=== PATIENT | female | born 1985 | race Caucasian/White ===

== ENCOUNTER 2022-06-22 17:25 | Emergency (ER) | payer BC, SELFPAY ==
[2022-06-22 17:34] VITALS: BP 149/95; PULSE 77; RESP 20; TEMP 37.1; O2SAT 99
[2022-06-22 18:04] VITALS: BP 130/88
--- NOTE | 2022-06-22 18:09 | ED.URI ---
HPI - URI/Sore Throat General Chief Complaint: Upper Respiratory Infection Stated Complaint: strep test Source: patient and RN notes reviewed History of Present Illness HPI Narrative: 36-year-old female presents to urgent care with complaints of sore throat that radiates to her right neck and ear. Patient states this started this morning. Patient denies any congestion, coughing, shortness of breath, vomiting, diarrhea, the summer chills. Patient did take Tylenol earlier for pain. Some parts of this dictation were generated by voice recognition software and may contain typographical and/or grammatical inaccuracies. Related Data Home Medications Medication Instructions Recorded Confirmed citalopram 40 mg tablet 40 mg PO DIRECTED 06/22/22 06/22/22 lorazepam 0.5 mg tablet 0.5 mg PO DIRECTED 06/22/22 06/22/22 Allergies Allergy/AdvReac Type Severity Reaction Status Date / Time sulfamethoxazole Allergy Hives Verified 06/22/22 17:33 [From Bactrim] trimethoprim [From Bactrim] Allergy Hives Verified 06/22/22 17:33 Review of Systems Review of Systems: CONSTITUTIONAL: Denies fever, chills, or sweats. EYES: Denies visual changes, redness, or discharge. ENT: Reports right ear pain and sore throat CARDIOVASCULAR: Denies chest pain, palpitations, or edema. RESPIRATORY: Denies cough or dyspnea. GASTROINTESTINAL: Denies abdominal pain, nausea, vomiting, or diarrhea. GENITOURINARY: Denies dysuria or hematuria. SKIN: Denies rash or itching. MUSCULOSKELETAL: Denies back pain, joint pain, or myalgia. NEUROLOGIC: Denies headache, numbness, or weakness. [facility] Past Medical History Medical History (Updated 06/22/22 @ 18:10 by Rosalia Hauser APRN) Anxiety panic attack No pertinent family history Surgical History Surgical History No significant past surgical history Social History Social History (Updated 04/16/19 @ 09:48 by LOIDA Francisco) Smoking status: Never smoker Comments At the time of my signature, I reviewed and agree with the nursing past medical, surgical, social, and family history. There is no relevant family history pertinent to the patient complaint. Exam Narrative: GENERAL: This is a well-nourished, well-developed patient, in no apparent distress. HEAD: normocephalic, atraumatic. EYES: PERRL. Sclera clear/white. Vision is grossly intact. EARS: External ears normal, auditory canals clear and without drainage, TMs normal without perforation. Hearing grossly intact. NOSE: External nose normal with no obvious nasal discharge, nares without redness, no rhinorrhea. THROAT: Mucous membranes moist, posterior pharynx clear. NECK: Neck supple, non-tender without lymphadenopathy, masses or thyromegaly. CARDIOVASCULAR: Regular rate and rhythm without murmurs, gallops, or rubs. RESPIRATORY: Clear to auscultation. Breath sounds equal bilaterally. No wheezes, rales, or rhonchi. GASTROINTESTINAL: Abdomen soft, non-tender, nondistended. Bowel sounds are active. No hepato-splenomegaly, or palpable masses. No guarding. SKIN: warm, intact with no suspicious lesions or rash, good texture and turgor. NEURO: awake, alert, and oriented to person, place and time. There were no obvious focal neurologic abnormalities. EXTREMITIES: No clubbing, cyanosis, or edema. No joint tenderness, effusion, or edema noted. BACK: Nontender without deformity or crepitance. No flank tenderness. Course Course Level of Care: Express Care Visit Vital Signs Vital signs: Vital Signs Temperature 98.7 F 06/22/22 17:34 Pulse Rate 77 06/22/22 17:34 Respiratory Rate 20 06/22/22 17:34 Blood Pressure 149/95 H 06/22/22 17:34 Pulse Oximetry 99 06/22/22 17:34 Oxygen Delivery Room Air 06/22/22 17:34 Temperature 98.7 F 06/22/22 17:34 Pulse Rate 77 06/22/22 17:34 Respiratory Rate 20 06/22/22 17:34 Blood Pressure 130/88 06/22/22 18:04 Pulse Oximet
== END 2022-06-22 18:13 | disposition home or self-care (01) ==
PROVIDERS: Emergency Provider Nurse Practitioner Family; PCP Nurse Practitioner Family
DX: J02.9 Acute pharyngitis, unspecified (principal); F41.9 Anxiety disorder, unspecified; F41.0 Panic disorder [episodic paroxysmal anxiety]
CPT/HCPCS: 87081; 87880; 99203; G0463

== ENCOUNTER 2023-04-10 11:13 | Emergency (ER) | payer BC, SELFPAY ==
[2023-04-10 11:19] VITALS: BP 143/91; PULSE 77; RESP 16; TEMP 36.8; O2SAT 100
--- NOTE | 2023-04-10 12:11 | ED.EAR ---
HPI - Ear Problem General Chief complaint: Ear Stated complaint: Ear infection Source: patient Mode of arrival: ambulatory Limitations: no limitations History of Present Illness HPI Narrative: Patient presents for evaluation of right-sided otalgia since last week. She has some muffled hearing on the right. She also feels like her right ears congested. She notes postnasal drainage. She also has right sided frontal sinus pressure. Denies drainage from the ear. No fever, chills, nausea or vomiting. She went in a hot tub last Sunday. She had a telemedicine appt yesterday and was diagnosed with otitis externa. She was given a prescription for ofloxacin which she just started using. She does smoke about 1/4 ppd. Related Data Home Medications Medication Instructions Recorded Confirmed citalopram 40 mg tablet 40 mg PO DIRECTED 06/22/22 06/22/22 lorazepam 0.5 mg tablet 0.5 mg PO DIRECTED 06/22/22 06/22/22 Allergies Allergy/AdvReac Type Severity Reaction Status Date / Time sulfamethoxazole Allergy Hives Verified 06/22/22 17:33 [From Bactrim] trimethoprim [From Bactrim] Allergy Hives Verified 06/22/22 17:33 [facility] Past Medical History Medical History Anxiety panic attack No pertinent family history Surgical History Surgical History No significant past surgical history Family History Family History Mother Family history non-contributory Social History Social History Smoking packs per day: 0.25 Smoking cigarettes per day: 5.0 Smoking status: Current every day smoker Tobacco type: cigarettes Substance use: never Gender identity (if verbalized by the patient): Female Spiritual care concerns: No Exam Narrative: GENERAL: Well-appearing, well-nourished, and in no acute distress. HEAD: Normocephalic, atraumatic. EYES: PERRLA and EOMI. ENT: Nares clear, no rhinorrhea or epistaxis. Mucous membranes moist. Oropharynx without tonsillar hypertrophy exudate or other lesions. Right ear canal is edematous. I can visualize the tympanic membrane which is erythematous and bulging. NECK: Supple. No adenopathy or masses. No carotid bruits or JVD CHEST: Clear to auscultation. No respiratory distress. No wheezes rales or rhonchi HEART: Regular rate and rhythm. No murmur heard. Normal peripheral pulses. ABDOMEN: Soft, nontender, nondistended, normal active bowel sounds. EXTREMITIES: Normal range of motion. No edema. SKIN: Warm, dry, no rash. NEURO: No focal deficits. Alert and oriented x3. PSYCH: Normal mood and affect. Course Course Emergency Course: This is a 37-year-old female who presented for evaluation of right-sided otalgia. She is currently being treated for otitis externa with ofloxacin. I recommended she continue with the therapy. She also has evidence of otitis media on exam. Will treat with Augmentin. Advised smoking cessation. Increase hydration. [id number] agents for symptom management. Follow up with primary provider. Go to the ER for worsening symptoms. Patient in agreement plan of care Level of Care: Express Care Visit Vital Signs Vital signs: Vital Signs Temperature 36.8 C 04/10/23 11:19 Pulse Rate 77 04/10/23 11:19 Respiratory Rate 16 04/10/23 11:19 Blood Pressure 143/91 H 04/10/23 11:19 Pulse Oximetry 100 04/10/23 11:19 Temperature 36.8 C 04/10/23 11:19 Pulse Rate 77 04/10/23 11:19 Respiratory Rate 16 04/10/23 11:19 Blood Pressure 143/91 H 04/10/23 11:19 Pulse Oximetry 100 04/10/23 11:19 Medical Decision Making Vital Signs Vital Signs: Vital Signs Temperature 36.8 C 04/10/23 11:19 Pulse Rate 77 04/10/23 11:19 Respiratory Rate 16 04/10/23 11:19 Bloo
== END 2023-04-10 12:16 | disposition home or self-care (01) ==
PROVIDERS: Emergency Provider Nurse Practitioner; PCP Nurse Practitioner Family
DX: H66.91 Otitis media, unspecified, right ear (principal); H60.501 Unspecified acute noninfective otitis externa, right ear; F17.210 Nicotine dependence, cigarettes, uncomplicated; F41.9 Anxiety disorder, unspecified; F41.0 Panic disorder [episodic paroxysmal anxiety]
CPT/HCPCS: 99213; G0463

== ENCOUNTER 2023-08-28 17:49 | Emergency (ER) | payer BC, SELFPAY ==
[2023-08-28 17:59] VITALS: BP 127/82; PULSE 72; RESP 16; TEMP 36.7; O2SAT 100
--- NOTE | 2023-08-28 18:05 | ED.SKABFB ---
HPI - Skin/Abscess/Foreign Bdy General Chief complaint: Skin/Abscess/Foreign Body Stated complaint: Skin Sore Time Seen by Provider: 08/28/23 18:05 Source: patient, RN notes reviewed and old records reviewed Mode of arrival: ambulatory Limitations: no limitations History of Present Illness HPI narrative: 38-year-old female presents to [facility] with complaints of 2 day duration of sores and blisters around outside of mouth with some crusty drainage noted. Patient reports that daughter recently diagnosed with impetigo. Patient has been cleansing areas with hydrogen peroxide and applying Neosporin ointment to areas.Patient denies any acute pain to areas around mouth and reports no fevers. MD complaint: rash and other (lesions around mouth) Onset (ago): day(s) (2) Severity: mild Treatments prior to arrival: other (hydrogen peroxide and Neosporin ointment) Related Data Home Medications Medication Instructions Recorded Confirmed citalopram 40 mg tablet 40 mg PO DIRECTED 06/22/22 06/22/22 lorazepam 0.5 mg tablet 0.5 mg PO DIRECTED 06/22/22 06/22/22 Allergies Allergy/AdvReac Type Severity Reaction Status Date / Time nitrofurantoin Allergy Hives Verified 08/28/23 17:58 [From Macrobid] Review of Systems Review of Systems: CONSTITUTIONAL: Denies fever, chills, or sweats. CARDIOVASCULAR: Denies chest pain, palpitations, or edema. RESPIRATORY: Denies cough or dyspnea. SKIN: Reports rash type of lesions around mouth which are crusty MUSCULOSKELETAL: Denies joint pain or myalgia. NEUROLOGIC: Denies headache, numbness, or weakness. All systems reviewed & are unremarkable except as noted in HPI and below PMFSH Past Medical History Medical History Anxiety panic attack No pertinent family history Surgical History Surgical History No significant past surgical history Family History Family History Mother Family history non-contributory Social History Social History Smoking packs per day: 0.25 Smoking cigarettes per day: 5.0 Smoking status: Current every day smoker Tobacco type: cigarettes Substance use: never Gender identity (if verbalized by the patient): Female Spiritual care concerns: No Comments At time of signature, agree with nursing past medical, surgical, social and family history. There is no relevant family history pertinent to the presenting complaint Exam Narrative: GENERAL: Well-appearing, well-nourished, and in no acute distress. HEAD: Normocephalic, atraumatic. EYES: PERRLA, conjunctivae clear, and EOMI. ENT: Mucous membranes moist. Oropharynx without edema, erythema or lesions. NECK: Supple. No lymphadenopathy CHEST: Clear to auscultation. No respiratory distress.SAO2 100% on room air HEART: Regular rate and rhythm. SKIN: Warm, dry.?crusty lesions and blisters around mouth with crusting especially to lesion at left side of mouth. NEURO:? Alert and oriented x3. PSYCH: Normal mood and affect Course Course Emergency Course: Patient is aware of diagnosis, understands and agrees to treatment plan.? Anticipatory guidance given.? Patient agrees to follow-up as directed and is aware of reasons to seek care at the emergency department. Portions of this record may have been created with voice recognition software Level of Care: Express Care Visit Vital Signs Vital signs: Vital Signs Temperature 36.7 C 08/28/23 17:59 Pulse Rate 72 08/28/23 17:59 Respiratory Rate 16 08/28/23 17:59 Blood Pressure 127/82 08/28/23 17:59 Pulse Oximetry 100 08/28/23 17:59 Oxygen Delivery Room Air 08/28/23 17:59 Temperature 36.7 C 08/28/23 17:59 Pulse Rate 72 08/28/23 17:59 Respiratory Rate 16 08/28/23 17:59 Blood
== END 2023-08-28 18:31 | disposition home or self-care (01) ==
PROVIDERS: Emergency Provider Registered Nurse; PCP Nurse Practitioner Family
DX: L01.00 Impetigo, unspecified (principal); F17.210 Nicotine dependence, cigarettes, uncomplicated; F41.9 Anxiety disorder, unspecified; F41.0 Panic disorder [episodic paroxysmal anxiety]
CPT/HCPCS: 99213; G0463